=== PATIENT | female | born 1980 | race Caucasian/White ===

== ENCOUNTER → 2017-07-27 | Emergency (ER) | payer OTHER ==
[~2017-07-27] VITALS: Ht 170.2 cm; Wt 68.0 kg
[~2017-07-27] MED LIST: AMOX-CLAV 875-1 EACH; OCUFLOX5 ML; PRED-G 1% EYE DR5 ML; PRENATAL1 TAB PO; ZYRTEC10 M3
== END | disposition home or self-care (01) ==
LOC: ER 11:27
DX: H01.8 Other specified inflammations of eyelid (principal); H00.011 Hordeolum externum right upper eyelid

== ENCOUNTER 2021-05-22 09:45 | Emergency (ER) | payer OTHER ==
[~2021-05-22] VITALS: Ht 172.7 cm; Wt 72.6 kg
== END 2021-05-22 13:18 | disposition home or self-care (01) ==
LOC: ER 09:45
DX: B34.9 Viral infection, unspecified (principal); Z20.822 Contact with and (suspected) exposure to COVID-19